=== PATIENT | female | born 1945 | race Caucasian/White ===

== ENCOUNTER 2022-06-20 11:29 | Day surgery (SDC) | payer MEDICARE ==
[2022-06-16 16:09] LABS: BASOPHILS % (AUTO) 0.5 % (0-1); EOSINOPHILS # (AUTO) 0.1 X10'3 (0-0.9); LYMPHOCYTES # (AUTO) 1.5 X10'3 (1.1-4.8); MEAN CORPUSCULAR HEMOGLOBIN 30.5 PG (27.0-31.0); MEAN CORPUSCULAR HGB CONC 33.4 g/dL (33.0-36.5); MEAN CORPUSCULAR VOLUME 91.1 FL (78-98); MEAN PLATELET VOLUME 9.2 FL (7.4-10.4); MONOCYTES # (AUTO) 0.4 X10'3 (0-0.9); MONOCYTES % (AUTO) 7.1 % (2-12); NEUTROPHILS # (AUTO) 3.8 X10'3 (1.8-7.7); NEUTROPHILS % (AUTO) 65.4 % (42-75); PRE OP HEMATOCRIT 36.7 % (35.0-45.0); PRE OP HEMOGLOBIN 12.3 g/dL (12.0-16.0); PRE OP PLATELET COUNT 191 X10'3 (140-440); RED BLOOD COUNT 4.02 X10'6 (4.20-5.60)
[2022-06-16 16:15] LABS: ALBUMIN/GLOBULIN RATIO 1.4 (1.1-1.5); ALKALINE PHOSPHATASE 54 IU/L (46-116); BLOOD UREA NITROGEN 29 MG/DL (7-18); BUN/CREATININE RATIO 22.5 (6.6-38.0); CHLORIDE 104 MMOL/L (99-107); CREATININE 1.29 MG/DL (0.40-0.90); PRE OP ALT 22 U/L (30-65); PRE OP ANION GAP 8 (8-16); PRE OP AST 17 U/L (10-37); PRE OP BILIRUB, TOTAL 0.3 MG/DL (0.0-1.0); PRE OP GLUCOSE 120 MG/DL (70-104); PRE OP POTASSIUM 4.2 MMOL/L (3.4-5.1); PRE OP SODIUM 141 MMOL/L (135-145); TOTAL CARBON DIOXIDE 29.1 MMOL/L (24-32); TOTAL PROTEIN 6.9 G/DL (6.4-8.2); eGFR 40 ML/MIN
[2022-06-20] VITALS (12 sets, daily range): BP systolic 115–140; BP diastolic 7–102
[~2022-06-20] VITALS: Ht 162.6 cm; Wt 77.9 kg
[~2022-06-20 11:29] MED LIST: BUPIVAcaine/PF 7.5mg/ml (0.75%) 10ml vial ONE; ceFAZolin inj. 2,000 MG in dextrose 5%-water 100 ML IV ONE; famotidine 20mg tablet PO ONE; ringers solution, lacted 1,000 ML IV SCH
[2022-06-20] MEDS ORDERED: morphine 2 MG/ML inj. syringe IV PRN (12:20)
[2022-06-20] MEDS ORDERED: morphine 4 MG/ML inj SYRINge IV PRN (12:20)
[2022-06-20] MEDS ORDERED: labetalol 20mg/4ml (5mg/ml) syringe IV PRN (12:20)
[2022-06-20] MEDS ORDERED: ondansetron/PF 4mg/2ml inj IV PRN (12:20)
[2022-06-20] MEDS ORDERED: ringers solution, lacted 1,000 ML IV SCH (12:20)
[2022-06-20] MEDS ORDERED: LEVO150T8 PO (12:39)
[2022-06-20] MEDS ORDERED: OXYB5TAB16 PO (12:45)
[2022-06-20] MEDS ORDERED: APIX2.5T PO (12:45)
[2022-06-20] MEDS ORDERED: QUININE (12:45)
[2022-06-20] MEDS ORDERED: LISI10TA27 PO (12:45)
[2022-06-20] MEDS ORDERED: BIOTIN (12:45)
[2022-06-20] MEDS ORDERED: DULA0.75 SQ (12:45)
[2022-06-20] MEDS ORDERED: VITAMIN D 3 (12:45)
[2022-06-20] MEDS ORDERED: ROSU5TAB12 PO (12:45)
[2022-06-20] MEDS ORDERED: ALLERTEC (12:45)
[2022-06-20] MEDS ORDERED: GABA800T11 PO (12:45)
[2022-06-20] MEDS ORDERED: acetaminophen 1,000mg/100ml IV 100 ML IV ONE (14:00)
[2022-06-20] MEDS ORDERED: propofol inj 20 ML IV ONE (14:00)
[2022-06-20] MEDS ORDERED: LIDOcaine 0.5% (5mg/ml) 50ml vial ONE (14:00)
--- NOTE | 2022-06-20 14:32 | NUR ---
Received from OR via [facility], accompanied by Anesthesiologist DR ZHANG and report given by Anesthesiolgist. PT PRESNTS WITH 20G LEFT HAND, DRESSING ON EIFHTR WRIST,HAND CDI. VSS.
--- NOTE | 2022-06-20 16:02 | NUR ---
I HAVE REVIEWED D/C INSTRUCTIONS WITH PATIENT AND THEY HAVE VERBALIZED UNDERSTANDING OF INSTRUCTIONS. PATIENT D/C HOME WITH ALL BELONGINGS AND FAMILY GAVE TRANSPORT Addendum: 06/20/22 at 1607 by Love Barreto RN, RN Amended: Links added.
== END 2022-06-20 16:02 | disposition home or self-care (01) ==
LOC: PAS 11:29
PROVIDERS: ATTEND Orthopaedic Surgery Hand Surgery
DX: G56.01 Carpal tunnel syndrome, right upper limb (principal); E11.22 Type 2 diabetes mellitus with diabetic chronic kidney disease; N18.30 Chronic kidney disease, stage 3 unspecified; G43.909 Migraine, unspecified, not intractable, without status migrainosus; E03.9 Hypothyroidism, unspecified; F41.9 Anxiety disorder, unspecified; M19.011 Primary osteoarthritis, right shoulder; E11.40 Type 2 diabetes mellitus with diabetic neuropathy, unspecified; M17.11 Unilateral primary osteoarthritis, right knee; Z87.891 Personal history of nicotine dependence; Z98.51 Tubal ligation status; Z98.890 Other specified postprocedural states; Z90.49 Acquired absence of other specified parts of digestive tract; Z90.710 Acquired absence of both cervix and uterus; Z86.718 Personal history of other venous thrombosis and embolism; Z79.01 Long term (current) use of anticoagulants; Z79.899 Other long term (current) drug therapy; Z79.84 Long term (current) use of oral hypoglycemic drugs; Z85.850 Personal history of malignant neoplasm of thyroid; Z88.5 Allergy status to narcotic agent
CPT/HCPCS: 36415; 64721; 80053; 82948; 85025; 93005; J0131; J0690; J2704; J3490; J7030; J7060; J7120; Z7506; A4215

== ENCOUNTER 2023-05-29 05:19 | Day surgery (SDC) | payer MEDICARE ==
[2023-05-23 15:24] LABS: BASOPHILS % (AUTO) 0.4 % (0-1); EOSINOPHILS # (AUTO) 0.1 X10'3 (0-0.9); EOSINOPHILS % (AUTO) 1.1 % (0-6); LYMPHOCYTES # (AUTO) 1.4 X10'3 (1.1-4.8); LYMPHOCYTES % (AUTO) 20.6 % (21-51); MEAN CORPUSCULAR HEMOGLOBIN 31.6 PG (27.0-31.0); MEAN CORPUSCULAR HGB CONC 33.2 g/dL (33.0-36.5); MEAN CORPUSCULAR VOLUME 95.3 FL (78-98); MEAN PLATELET VOLUME 9.3 FL (7.4-10.4); MONOCYTES # (AUTO) 0.5 X10'3 (0-0.9); MONOCYTES % (AUTO) 8.1 % (2-12); NEUTROPHILS # (AUTO) 4.6 X10'3 (1.8-7.7); NEUTROPHILS % (AUTO) 69.8 % (42-75); PRE OP HEMATOCRIT 41.3 % (35.0-45.0); PRE OP HEMOGLOBIN 13.7 g/dL (12.0-16.0); PRE OP PLATELET COUNT 172 X10'3 (140-440); PRE OP WHITE BLOOD COUNT 6.6 10'3 (4.8-10.8); RED BLOOD COUNT 4.33 X10'6 (4.20-5.60); RED CELL DISTRIBUTION WIDTH 14.5 % (11.5-14.5)
[2023-05-23 15:36] LABS: ALBUMIN 3.9 G/DL (3.4-5.0); ALBUMIN/GLOBULIN RATIO 1.2 (1.1-1.5); ALKALINE PHOSPHATASE 52 IU/L (46-116); BLOOD UREA NITROGEN 20 MG/DL (7-18); BUN/CREATININE RATIO 18.2 (10.0-20.0); CALCIUM 8.5 MG/DL (8.5-10.1); CHLORIDE 106 MMOL/L (99-107); PRE OP ALT 29 U/L (30-65); PRE OP ANION GAP 9 (8-16); PRE OP AST 20 U/L (10-37); PRE OP BILIRUB, TOTAL 0.3 MG/DL (0.0-1.0); PRE OP GLUCOSE 97 MG/DL (70-104); PRE OP POTASSIUM 3.9 MMOL/L (3.4-5.1); PRE OP SODIUM 144 MMOL/L (135-145); TOTAL CARBON DIOXIDE 28.7 MMOL/L (24-32); TOTAL PROTEIN 7.2 G/DL (6.4-8.2); eGFR 48 ML/MIN
[~2023-05-29] VITALS: Ht 162.6 cm; Wt 81.6 kg
[2023-05-29] VITALS (11 sets, daily range): BP systolic 119–155; BP diastolic 53–79; PULSE 59–68; RESP 10–16; TEMP 97.8; O2SAT 95–100
[~2023-05-29 05:19] MED LIST changes: +ALLERTEC; +ASPI81TA52 PO; +BIOTIN; -BUPIVAcaine/PF 7.5mg/ml (0.75%) 10ml vial ONE; +DAPA10TA PO; +DULA0.75 SQ; +GABA800T11 PO; +LEVO150T8 PO; +LISI10TA27 PO; +QUININE; +ROSU5TAB12 PO; +VIBE75TA PO; +VITAMIN B-12; +VITAMIN D 3; -ceFAZolin inj. 2,000 MG in dextrose 5%-water 100 ML IV ONE; -famotidine 20mg tablet PO ONE; -ringers solution, lacted 1,000 ML IV SCH
[2023-05-29] MEDS ORDERED: famotidine 20mg tablet PO ONE (05:30)
[2023-05-29] MEDS ORDERED: ringers solution, lacted 1,000 ML IV ONE (05:30)
[2023-05-29] MEDS ORDERED: cefazolin 2gm/D5W 100mL 100 ML IV ONE (05:30)
[2023-05-29] MEDS ORDERED: BUPIVAcaine/PF 2.5mg/ml (0.25%) 10ml vial ONE (06:47)
[2023-05-29] MEDS ORDERED: BUPIVAcaine 2.5mg/ml inj 50ml vial (contains preservative) ONE (06:48)
[2023-05-29] MEDS ORDERED: fentaNYL/PF 50MCG/1 ML 2ML syringe IV PRN ×2 (07:35)
[2023-05-29] MEDS ORDERED: hydrALAZINE 20mg/ml inj. IV PRN (07:35)
[2023-05-29] MEDS ORDERED: acetaminophen 1,000mg/100ml IV 100 ML IV ONE (07:35)
[2023-05-29] MEDS ORDERED: labetalol 20mg/4ml (5mg/ml) syringe IV PRN (07:35)
[2023-05-29] MEDS ORDERED: ketorolac tromethamine 15mg/ml inj. IV ONE (07:35)
[2023-05-29] MEDS ORDERED: ringers solution, lacted 1,000 ML IV SCH (07:35)
[2023-05-29] MEDS ORDERED: ondansetron/PF 4mg/2ml inj IV PRN (07:35)
[2023-05-29] MEDS ORDERED: morphine 2 MG/ML inj. syringe IV PRN (07:35)
[2023-05-29] MEDS ORDERED: proCHLORperazine 10 MG/2 ml inj IV PRN (07:35)
[2023-05-29] MEDS ORDERED: fentaNYL/PF 50MCG/1 ML 2ML syringe ONE (07:50)
[2023-05-29] MEDS ORDERED: midazolam 1 mg/ML 2ml injection ONE (07:52)
[2023-05-29] MEDS ORDERED: BUPIVAcaine 0.5% inj/PF 30 ml vial IJ ONE (08:05)
[2023-05-29] MEDS ORDERED: propofol inj 20 ML IV ONE (08:13)
== END 2023-05-29 10:10 | disposition home or self-care (01) ==
LOC: PAS 05:19
PROVIDERS: ATTEND Orthopaedic Surgery Hand Surgery
DX: G56.02 Carpal tunnel syndrome, left upper limb (principal); M65.352 Trigger finger, left little finger; F41.9 Anxiety disorder, unspecified; E11.40 Type 2 diabetes mellitus with diabetic neuropathy, unspecified; M16.12 Unilateral primary osteoarthritis, left hip; M19.011 Primary osteoarthritis, right shoulder; M17.11 Unilateral primary osteoarthritis, right knee; Z79.899 Other long term (current) drug therapy; Z79.84 Long term (current) use of oral hypoglycemic drugs; Z98.890 Other specified postprocedural states; Z98.51 Tubal ligation status; Z90.49 Acquired absence of other specified parts of digestive tract; Z90.710 Acquired absence of both cervix and uterus; Z87.891 Personal history of nicotine dependence
CPT/HCPCS: 26055; 36415; 64721; 80053; 82948; 85025; J0690; J2250; J2405; J2704; J3010; J3490; J7030; J7120; S0020; Z7506; Z7512; A4215